=== PATIENT | male | born 2000 | race Caucasian/White ===

== ENCOUNTER → 2021-02-15 | Emergency (ER) | payer OTHER ==
[~2021-02-15] VITALS: Ht 182.9 cm; Wt 80.7 kg
== END | disposition left against medical advice (07) ==
LOC: ER 17:50
DX: S01.82XA Laceration with foreign body of other part of head, initial encounter (principal); W45.8XXA Other foreign body or object entering through skin, initial encounter; Y93.89 Activity, other specified; Y92.89 Other specified places as the place of occurrence of the external cause; Y99.8 Other external cause status